=== PATIENT | female | born 1965 | race Caucasian/White ===

== ENCOUNTER → 2018-12-08 | Day surgery (SDC) | payer OTHER ==
[~2018-12-08] MED LIST: ACETAMINOPHEN 1000 MG/100 ML IV ONE; BUPIVACAINE HCL 0.5% INJ 30 ML VIAL INJ ONE; CEFAZOLIN SOD 1 GM/NS 50ML 50 ML IV ONE; DEXAMETHASONE SOD PHOS INJ 4 MG/ML VIAL ONE; EFFEXOR XR 3737.5 MG PO; FENTANYL CITRATE/PF 100MCG/2 ML INJ ONE; HYDROCODONE/APAP 5MG-325MG TAB ONE; KETOROLAC TROMETHAMINE 30 MG/ML VIAL ONE; LIDOCAINE HCL 2% LOCAL INJ 5 ML SDV VIAL INJ ONE; METOPROLOL TART50 MG PO; MIDAZOLAM HCL 2 MG/2 ML VIAL ONE; MULTIVITAMINS1 EAC7 PO; ONDANSETRON HCL INJ 2MG/ML 2ML 2 MG/ML VIAL ONE; PROPOFOL IV EMULSION 10 MG/ML 20 ML VIAL ONE; SEVOFLURANE INHAL SOLN 250 ML PEN BTL ONE
--- OUTSIDE RECORDS SUMMARY | 2018-12-08 05:09 | XMS REPORT | Encounter Summary ---
Author Organization Unknown Address [address] [place] [address] Phone [phone] Reason for Visit Medical Complaint Instructions 1. Urinary tract infectious disease urinalysis, dipstick urinary tract infection in women: care instructions phenazopyridine 200 mg tablet Macrobid 100 mg capsule culture, urine 2. Body mass index 25-29 - overweight body mass index: care instructions Discussion Note Pt is in no apparent acute distress; Verbalizes understanding of and agreement with all instructions with no questions at this time. Plan of Care Patient Instructions Take all medications as directed. Follow up with your PCP as needed. Seek additional medical care with new or worsening symptoms, or if symptoms do not resolve in 3-4 days. Thank you for allowing me to participate in your healthcare! Reminders Provider Appointments None recorded. Lab Urinalysis, Dipstick 12/02/2017 [facility] Culture, Urine 12/02/2017 [facility] Referral None recorded. Procedures None recorded. Surgeries None recorded. Imaging None recorded. Medications Name Start Date amlodipine 5 mg tablet TAKE 1 TABLET BY MOUTH TWICE A DAY ciprofloxacin 500 mg tablet TAKE 1 TABLET BY MOUTH TWICE A DAY enoxaparin 40 mg/0.4 mL subcutaneous syringe INJECT 1 SYRINGE SUB-Q DAILY fluconazole 150 mg tablet fluoxetine 20 mg capsule fluticasone 50 mcg/actuation nasal spray,suspension hydrochlorothiazide 25 mg tablet TAKE 1 TABLET BY MOUTH EVERY DAY hydrocodone 5 mg-acetaminophen 325 mg tablet Macrobid 100 mg capsule Take 1 capsule every 12 hours by oral route for 7 days. metoprolol succinate ER 50 mg tablet,extended release 24 hr TAKE 1 TABLET BY MOUTH TWICE A DAY montelukast 10 mg tablet TAKE 1 TABLET BY MOUTH AT BEDTIME mupirocin 2 % topical ointment APPLY TO AFFECTED AREA 4 TIMES A DAY NEEDED naproxen 500 mg tablet naproxen sodium 550 mg tablet TAKE 1 TABLET BY MOUTH EVERY 12 HOURS MAX OF 2 TABS IN 24 HOURS phenazopyridine 200 mg tablet Take 1 tablet 3 times a day by oral route as needed. prednisone 10 mg tablet TAKE 3 TABLETS BY MOUTH DAILY X3 DAYS, 2 TABLETS DAILY X3 DAYS, 1 TABLET DAILY X5 DAYS START 09/06/17 prochlorperazine maleate 10 mg tablet simvastatin 10 mg tablet sulfacetamide sodium (acne) 10 % lotion (suspension) APPLY TO FACE 1 TO 2 TIMES A DAY ROSACEA tramadol 50 mg tablet venlafaxine ER 37.5 mg capsule,extended release 24 hr TAKE 1 CAPSULE (37.5 MG) BY MOUTH AT BEDTIME. Medications Administered None recorded. Vitals Height Weight BMI Blood Pressure 5 ft 3 in 162 lbs 28.7 kg/m2 116/74 mm[Hg] Lab Results Date Name Specimen Result Interpretation Description Value Range Status Address Urinalysis, Dipstick Color : Yellow [facility]: [address] [place] [address] Clarity : Cloudy [facility]: [address] [place] [address] Leukocytes : Trace [facility]: [address] [place] [address] Nitrites : Negative [facility]: [address] [place] [address] Urobilinogen : Normal [facility]: [address] [place] [address] Protein : Negative [facility]: [address] [place] [address] Ph : 5.0 [facility]: [address] [place] [address] Blood : Moderate [facility]: [address] [place] [address] Specific [place] : 1.000 [facility]: [address] [place] [address] Ketones : Negative [facility]: [address] [place] [address] Bilirubin : Negative [facility]: [address] [place] [address] Glucose Negative [facility]: [address] [place] [address] Allergies Code Code System Name Reaction Severity Status Onset RxNorm Azithromycin Nausea Active Vomiting Active Problems Name Status Onset Date Source Urinary Tract Infectious Disease Active Encounter Procedures Date Name Performed by Hysterectomy Information not available Vaccine List None recorded. Social History Smoking Status Never Smoker Past Encounters 12/02/2017 Urinary Tract Infectious Disease; Body Mass Index 25-29 - Overweight WALESKA Cunningham-C: [address] [place] [address], Ph. History of Present Illness [id number] Reported By: Patient HPI: Location: urethra; flanks?. Quality: pain, burning. Severity: same. Onset/Timing: gradual. Context: no known exposure to STD, no prior history of STDs, sexually active. Associated Symptoms: no fever/chills, no flank pain, no jaundice, no blood in the urine, no vaginal discharge, no blisters on genitals, no rash on genitals, no muscle aches, no headache, pain during urination, urgency, hesitancy, urinary frequency, abdominal pain, feeling of incomplete emptying of bladder Review of Systems:ROS as noted in the HPI Review of Systems Basic Reported By: Patient Physical Exam Adult Basic, Adult Female Complete Reported By: Patient Constitutional: General Appearance: healthy-appearing, well-nourished, well-developed. Level of Distress: NAD. Ambulation: ambulating normally Psychiatric: Mental Status: active and alert. Orientation: to time, to place, to person Eyes: Lids and Conjunctivae: non-injected, no discharge, no pallor. Pupils: PERRLA. Corneas: grossly intact. EOM: EOMI. Lens: clear. Sclerae: non-icteric Mgp-Ytmt-Hnmfu-Throat: Ears: no lesions on external ear, no outer ear tenderness, EACs clear, TMs clear. Hearing: no hearing loss. Nose: no lesions on external nose, nares patent, no septal deviation, nasal passages clear, no sinus tenderness, no nasal discharge. Lips, Teeth, and Gums: no mouth or lip ulcers. Oropharynx: moist mucous membranes, no erythema, no exudates, tonsils not enlarged Neck: Neck: supple, trachea midline, no masses, FROM. Lymph Nodes: no cervical LAD, no supraclavicular LAD, no inguinal LAD. Thyroid: no enlargement, non- tender, no nodules Lungs: Respiratory effort: no dyspnea. Auscultation: breath sounds normal Cardiovascular: Heart Auscultation: RRR, no murmurs Neurologic: Gait and Station: normal gait, normal station Skin: Inspection and palpation: no rash, no lesions Abdomen: Bowel Sounds: normal. Inspection and Palpation: soft, non-distended, no tenderness, no guarding, no rebound tenderness, no masses, no CVA tenderness. Liver: non-tender, no hepatomegaly. Spleen: non-tender, no splenomegaly. Hernia: none palpable
--- OUTSIDE RECORDS SUMMARY | 2018-12-08 05:09 | XMS REPORT | Encounter Summary ---
Author Organization Unknown Address [address] [place] [address] Phone [phone] Reason for Visit Medical Complaint Instructions 1. Dysuria painful urination (dysuria): care instructions sulfamethoxazole 800 mg-trimethoprim 160 mg tablet urinalysis, dipstick culture, urine phenazopyridine 200 mg tablet 2. Elevated blood pressure elevated blood pressure: care instructions dash diet: care instructions blood pressure monitoring education 3. Body mass index 25-29 - overweight learning about healthy weight Discussion Note: None recorded. Plan of Care Patient Instructions A urinary tract infection, or UTI, is a general term for an infection anywhere between the kidneys and the urethra (where urine comes out). Most UTIs are bladder infections. They often cause pain or burning when you urinate. UTIs are caused by bacteria and can be cured with antibiotics. Be sure to complete your treatment so that the infection goes away. How can you care for yourself at home? Take your antibiotics as directed. Do not stop taking them just because you feel better. You need to take the full course of antibiotics. Drink extra water and other fluids for the next day or two. This may help wash out the bacteria that are causing the infection. (If you have kidney, heart, or liver disease and have to limit fluids, talk with your doctor before you increase your fluid intake.) Avoid drinks that are carbonated or have caffeine. They can irritate the bladder. Urinate often. Try to empty your bladder each time. To relieve pain, take a hot bath or lay a heating pad set on low over your lower belly or genital area. Never go to sleep with a heating pad in place. To prevent UTIs Drink plenty of water each day. This helps you urinate often, which clears bacteria from your system. (If you have kidney, heart, or liver disease and have to limit fluids, talk with your doctor before you increase your fluid intake.) Urinate when you need to. Urinate right after you have sex. Change sanitary pads often. Avoid douches, bubble baths, feminine hygiene sprays, and other feminine hygiene products that have deodorants. After going to the bathroom, wipe from front to back. When should you call for help? Call your doctor now or seek immediate medical care if: Symptoms such as fever, chills, nausea, or vomiting get worse or appear for the first time. You have new pain in your back just below your rib cage. This is called flank pain. There is new blood or pus in your urine. You have any problems with your antibiotic medicine. Watch closely for changes in your health, and be sure to contact your doctor if: You are not getting better after taking an antibiotic for 2 days. Your symptoms go away but then come back. Reminders Provider Appointments None recorded. Lab Urinalysis, Dipstick 07/05/2018 [facility] Culture, Urine 07/05/2018 [facility] Referral None recorded. Procedures None recorded. Surgeries None recorded. Imaging None recorded. Medications Name Start Date amoxicillin 875 mg-potassium clavulanate 125 mg tablet TAKE 1 TABLET BY MOUTH EVERY 12 HOURS WITH MEALS FOR 10 DAYS benzonatate 100 mg capsule TAKE 2 CAPSULE(S) 3 TIMES A DAY BY ORAL ROUTE DIRECTED FOR 10 DAYS. metoprolol succinate ER 50 mg tablet,extended release 24 hr TAKE 1 TABLET BY MOUTH TWICE A DAY montelukast 10 mg tablet TAKE 1 TABLET BY MOUTH AT BEDTIME phenazopyridine 200 mg tablet Take 1 tablet 3 times a day by oral route as needed. sulfamethoxazole 800 mg-trimethoprim 160 mg tablet Take 1 tablet every 12 hours by oral route as directed for 5 days. venlafaxine ER 37.5 mg capsule,extended release 24 hr TAKE 1 CAPSULE (37.5 MG) BY MOUTH AT BEDTIME. Medications Administered None recorded. Vitals Height Weight BMI Blood Pressure 5 ft 3 in 162 lbs 28.7 kg/m2 137/87 mm[Hg] Lab Results Date Name Specimen Result Interpretation Description Value Range Status Address Urinalysis, Dipstick Color : Yellow [facility]: [address] [place] [address] Clarity : Clear [facility]: [address] [place] [address] Leukocytes : Trace [facility]: [address] [place] [address] Nitrites : Negative [facility]: [address] [place] [address] Urobilinogen : Normal [facility]: [address] [place] [address] Protein : Trace [facility]: [address] [facility] Ph : 5.0 [facility]: [address] [facility] Blood : Non-hemolized Trace [facility]: [address] [facility] Specific [place] : 1.010 [facility]: [address] [facility] Ketones : Trace [facility]: [address] [facility] Bilirubin : Negative [facility]: [address] [facility] Glucose Negative [facility]: [address] [facility] Allergies Code Code System Name Reaction Severity Status Onset RxNorm Azithromycin Nausea Active Vomiting Active Problems Name Status Onset Date Source 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 History of Present Illness [id number] Reported By: Patient HPI: Quality: pain, pressure, burning. Severity: mild. Duration: constant. Context: not sexually active, no known exposure to STD, no prior history of STDs. Associated Symptoms: no fever/chills, no flank pain, no jaundice, no blood in the urine, no pain during urination, no vaginal discharge, no urgency, no blisters on genitals, no rash on genitals, no muscle aches, no headache, burning sensation during urination, urinary frequency, abdominal pain, feeling of incomplete emptying of bladder Review of Systems:ROS as noted in the HPI Review of Systems Basic Reported By: Patient Physical Exam Adult Basic, Adult Female Complete Reported By: Patient Constitutional: General Appearance: healthy-appearing, well-nourished, well-developed, overweight. Level of Distress: NAD. Ambulation: ambulating normally Psychiatric: Mental Status: active and alert. Orientation: to time, to place, to person Lungs: Respiratory effort: no dyspnea, no tachypnea, no use of accessory muscles, no intercostal retractions. Auscultation: breath sounds normal Cardiovascular: Heart Auscultation: RRR, no murmurs
--- OUTSIDE RECORDS SUMMARY | 2018-12-08 05:09 | XMS REPORT | Encounter Summary ---
Author Organization Unknown Address [address] [place] [address] Phone [phone] Reason for Visit Medical Complaint Instructions 1. [...] Urinalysis, Dipstick Color : Yellow [facility]: [address] [place] [address] Clarity : Clear [facility]: [address] [place] [address] Leukocytes : Trace [facility]: [address] [place] [address] Nitrites : Negative [facility]: [address] [place] [address] Urobilinogen : Normal [facility]: [address] [place] [address] Protein : Trace [facility]: [address] [facility] Ph : 5.0 [facility]: [address] [facility] Blood : Non-hemolized Trace [facility]: [address] [facility] Specific [place] : 1.010 [facility]: [address] [facility] Ketones : Trace [facility]: [address] [facility] Bilirubin : Negative [facility]: [address] [facility] Glucose Negative [facility]: [address] [facility] Allergies Code Code System Name Reaction Severity Status Onset RxNorm Azithromycin Nausea Active Vomiting Active Problems Name Status Onset Date Source 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 History of Present Illness [id number] Reported By: Patient HPI: Quality: pain, pressure, [...]
--- OUTSIDE RECORDS SUMMARY | 2018-12-08 05:09 | XMS REPORT | Encounter Summary ---
Author Organization Unknown Address [address] [place] [address] Phone [phone] Reason for Visit Medical Complaint Instructions 1. Urinary tract infectious disease urinalysis, dipstick Macrobid 100 mg capsule culture, urine urinary tract infection in women: care instructions 2. Essential hypertension acute high blood pressure: care instructions dash diet: care instructions Discussion Note: None recorded. Plan of Care Patient Instructions Please drink plenty of water and cranberry juice, complete antibiotic course even after symptoms resolve. Please go to ER/UC/PCP if symptoms get worse or doesn't get better in 2 to 3 days. Please follow up with oncologist RANDOLPH. Please read all the side effects of the medications, if you develop any side effects immediately stop the medication and please contact your PCP/UC/ER or [facility] or call 911. Patient verbalizes understanding and agrees to plan. Please follow up with PCP for further follow up and evaluation of high blood pressure. Please monitor BP regularly, keep BP log and take it when you go to PCP, seek medical advice if any dizziness, chest pain,shortness of breath, head ache, weakness or numbness. Patient verbalizes understanding and agrees to plan. Reminders Provider Appointments None recorded. Lab Urinalysis, Dipstick 05/22/2016 [facility] Culture, Urine 05/22/2016 [facility] Referral None recorded. Procedures None recorded. Surgeries None recorded. Imaging None recorded. Medications Name Start Date amlodipine 5 mg tablet amoxicillin 875 mg-potassium clavulanate 125 mg tablet ciprofloxacin 500 mg tablet Depo-Medrol 80 mg/mL suspension for injection enoxaparin 40 mg/0.4 mL subcutaneous syringe INJECT 1 SYRINGE SUB-Q DAILY fluconazole 150 mg tablet fluoxetine 20 mg capsule fluticasone 50 mcg/actuation nasal spray,suspension hydrocodone 5 mg-acetaminophen 325 mg tablet Macrobid 100 mg capsule Take 1 capsule every 12 hours by oral route with meals for 7 days. metoprolol succinate ER 50 mg tablet,extended release 24 hr naproxen 500 mg tablet naproxen sodium 550 mg tablet ondansetron HCl 8 mg tablet [place] 1.2 % (1 % base)-3.75 % topical gel with pump APPLY TO PIMPLES DAILY, Pramosone E 2.5 %-1 % topical cream prochlorperazine maleate 10 mg tablet simvastatin 10 mg tablet tramadol 50 mg tablet Medications Administered None recorded. Vitals Height Weight BMI Blood Pressure 5 ft 3 in 166 lbs 29.4 (1) 148/80 (2) 145/84 Lab Results Date Name Result Description Value Range Status Urinalysis, Dipstick Color : Yellow Clarity : Clear Leukocytes : Large Nitrites : Negative Urobilinogen : Normal Protein : Trace Ph : 5.5 Blood : Hemolyzed Trace Specific [place] : 1.015 Ketones : Negative Bilirubin : Negative Glucose Negative Allergies Name Reaction Severity Onset Azithromycin Nausea Vomiting Problems Name Status Onset Date Source Acute Suppurative Otitis Media without Spontaneous Rupture of Ear Drum Active Encounter Essential Hypertension Active Encounter Acute Maxillary Sinusitis Active Encounter Allergic Rhinitis Active Encounter Urinary Tract Infectious Disease Active Encounter Procedures Date Name Performed by Hysterectomy Information not available Vaccine List None recorded. 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 History of Present Illness [id number] Reported By: Patient HPI: Location: abdomen, urethra. Quality: pressure, burning. Severity: worsening. Duration: intermittent. Onset/Timing: worse. Context: not sexually active, no known exposure to STD, no prior history of STDs. Associated Symptoms: no fever/chills, no flank pain, no jaundice, no blood in the urine, no pain during urination, no vaginal discharge, no blisters on genitals, no rash on genitals, burning sensation during urination, urgency, urinary frequency, abdominal pain Notes: Pt denies fevr, abdominal pain or back pain. Review of Systems Basic Reported By: Patient Constitutional: Constitutional: no fever Eyes: Eyes: no eye complaints Fwhi-Bkyw-Wgdsf-Throat: Ears: no ear complaints. Nose: no nose/sinus problems. Mouth/Throat: no sore throat, no bleeding gums, no mouth complaints, no teeth problems Cardiovascular: Cardiovascular: no chest pain, no shortness of breath, no known heart murmur Respiratory: Respiratory: no cough, no wheezing, no shortness of breath Gastrointestinal: Gastrointestinal: no abdominal pain, no vomiting / diarrhea Genitourinary: Genitourinary: no discharge, dysuria, urinary urgency Musculoskeletal: Musculoskeletal: no muscle aches, no muscle weakness, no arthralgias/joint pain, no back pain Skin: Skin: no abnormal / changing mole, no jaundice, no rashes Neurologic: Neurologic: no loss of consciousness, no weakness, no numbness, no seizures, no dizziness, no headaches Physical Exam Adult Basic, Adult Female Complete Reported By: Patient Constitutional: General Appearance: healthy-appearing, well-nourished, well-developed. Level of Distress: NAD. Ambulation: ambulating normally Psychiatric: Mental Status: active and alert. Orientation: to time, to place, to person Lungs: Respiratory effort: no dyspnea, no tachypnea. Auscultation: breath sounds normal Cardiovascular: Heart Auscultation: RRR, no murmurs Neurologic: Gait and Station: normal gait Skin: Inspection and palpation: no rash Abdomen: Bowel Sounds: normal. Inspection and Palpation: soft, non-distended, no guarding, no rebound tenderness, no masses, no CVA tenderness, suprapubic tenderness
--- OUTSIDE RECORDS SUMMARY | 2018-12-08 05:09 | XMS REPORT | Encounter Summary ---
Author Organization Unknown Address [address] [place] [address] Phone [phone] Reason for Visit Medical Complaint Instructions 1. Urinary tract infectious disease urinalysis, dipstick Macrobid 100 mg capsule culture, urine urinary tract infection in women: care instructions Discussion Note: None recorded. Plan [...] medication and please [facility] or call 911. Patient verbalizes understanding and agrees to plan. Reminders Provider Appointments None recorded. Lab Urinalysis, Dipstick 05/22/2016 [facility] Culture, Urine 05/22/2016 [facility] Referral None [...] : 5.5 Blood : Hemolyzed Trace Specific [place] : 1.015 Ketones : Negative Bilirubin : Negative Glucose Negative Allergies Name Reaction Severity Onset Azithromycin Nausea Vomiting Problems Name Status Onset Date Source Acute Suppurative Otitis Media without Spontaneous Rupture of Ear Drum Active Encounter Acute Maxillary Sinusitis Active Encounter Allergic Rhinitis Active Encounter Urinary Tract Infectious Disease Active Encounter Procedures Date Name Performed by Hysterectomy Information not available Vaccine List None recorded. 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 History of Present Illness [id number] Reported By: Patient HPI: Location: abdomen, urethra. [...] no fever Eyes: Eyes: no eye complaints Pnto-Vnfh-Zgfmr-Throat: Ears: no ear complaints. Nose: no nose/sinus [...]
--- OUTSIDE RECORDS SUMMARY | 2018-12-08 05:09 | XMS REPORT | Encounter Summary ---
Author Organization Unknown Address [address] [place] [address] Phone [phone] Reason for Visit Medical Complaint Instructions 1. Allergic rhinitis allergies: care instructions Xyzal 5 mg tablet fluticasone propionate 50 mcg/actuation nasal spray,suspension rapid strep group A, throat Discussion Note Pt in NAD, understands all information provided Plan of Care Patient Instructions Pt will take meds as prescribed with 8oz glass of water. Please seek care (PCP, Urgent Care, ER) or return to [facility] if symptoms get worse or do not resolve in 1 week. Reminders Provider Appointments None recorded. Lab Rapid Strep Group a, Throat 10/27/2018 [facility] Referral None recorded. Procedures None recorded. Surgeries None recorded. Imaging None recorded. Medications Name Start Date doxycycline hyclate 20 mg tablet fluticasone propionate 50 mcg/actuation nasal spray,suspension [place] 1 spray twice a day by intranasal route for 14 days. metoprolol succinate ER 50 mg tablet,extended release 24 hr TAKE 1 TABLET BY MOUTH TWICE A DAY venlafaxine ER 37.5 mg capsule,extended release 24 hr TAKE 1 CAPSULE (37.5 MG) BY MOUTH AT BEDTIME. Xyzal 5 mg tablet Take 1 tablet every day by oral route for 14 days. Medications Administered None recorded. Vitals Height Weight BMI Blood Pressure 5 ft 3 in 162 lbs 28.7 kg/m2 120/90 mm[Hg] Lab Results Date Name Specimen Result Interpretation Description Value Range Status Address 10/10/2018 Culture, Urine URINE ABNORMAL Urine Culture, Routine final report Final [facility]: [id number] URINE ABNORMAL Result 1 escherichia coli Final [facility]: [id number], [place] URINE Antimicrobial Susceptibility mihead Final [facility]: [address], [place] Rapid Strep Group a, Throat Result negative [facility]: [address] [place] [address] Swab Location Left and Right tonsillar pillars [facility]: [address] [place] [address] Urinalysis, Dipstick Color : Yellow [facility]: [address] [facility] Clarity : Cloudy [facility]: [address] [facility] Leukocytes : Moderate [facility]: [address] [place] [address] Nitrites : Positive [facility]: [address] [place] [address] Urobilinogen : Normal [facility]: [address] [place] [address] Protein : Trace [facility]: [address] [place] [address] Ph : 6.0 [facility]: [address] [place] [address] Blood : Large [facility]: [address] [place] [address] Specific [place] : 1.010 [facility]: 9 [facility] Ketones : Negative [facility]: [facility] Bilirubin : Negative [facility]: [address] [place] [address] Glucose Negative [facility]: [address] [place] [address] Allergies Code Code System Name Reaction Severity Status Onset RxNorm Azithromycin Nausea Active Vomiting Active Problems Name Status Onset Date Source 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 10/10/2018 Dysuria; Elevated Blood Pressure; Body Mass Index 25-29 - Overweight Rachelluisjenn NAJMA ContrerasP-C: [address] [place] [address], Ph. History of Present Illness Throat-Oral Complaint Reported By: Patient HPI: Location: throat. Duration: 2 days. Context: no sick contacts, no foreign travel, non-smoker. Associated Symptoms: no fever, no headache, no body aches, no sputum production, no shortness of breath, no wheezing, no change in number of pillows needed to sleep at night, no sweats, no significant weight gain, no significant weight loss, no morning cough, no vomiting, no diarrhea, no rash, no nausea, sore throat Review of Systems:ROS as noted in the HPI Review of Systems Basic Reported By: Patient Physical Exam Adult Basic, Adult Female Complete Reported By: Patient Constitutional: General Appearance: healthy-appearing, well-nourished, well-developed. Level of Distress: NAD. Ambulation: ambulating normally Psychiatric: Mental Status: active and alert. Orientation: to time, to place, to person Val-Xngb-Akryw-Throat: Ears: no lesions on external ear, no outer ear tenderness, EACs clear, TMs clear. Hearing: no hearing loss. Nose: no lesions on external nose, nares patent, no septal deviation, nasal passages clear, sinus tenderness, post nasal drip. Lips, Teeth, and Gums: no mouth or lip ulcers, no bleeding gums, normal dentition. Oropharynx: erythema Lungs: Respiratory effort: no dyspnea, no tachypnea, no use of accessory muscles, no intercostal retractions. Auscultation: breath sounds normal Cardiovascular: Heart Auscultation: RRR, no murmurs Neurologic: Gait and Station: normal gait, normal station
--- OUTSIDE RECORDS SUMMARY | 2018-12-08 05:09 | XMS REPORT | Encounter Summary ---
Author Organization Unknown Address [address] [place] [address] Phone [phone] Reason for Visit Medical Complaint Instructions 1. Dysuria painful urination (dysuria): care instructions sulfamethoxazole 800 mg-trimethoprim 160 mg tablet urinalysis, dipstick culture, urine 2. Elevated blood pressure elevated blood pressure: [...] TAKE 1 TABLET BY MOUTH AT BEDTIME sulfamethoxazole 800 mg-trimethoprim 160 mg tablet Take [...] Urinalysis, Dipstick Color : Yellow [facility]: [address] [place] [address] Clarity : Clear [facility]: [address] [place] [address] Leukocytes : Trace [facility]: [address] [place] [address] Nitrites : Negative [facility]: [address] [place] [address] Urobilinogen : Normal [facility]: [address] [place] [address] Protein : Trace [facility]: [address] [place] [address] Ph : 5.0 [facility]: [address] [place] [address] Blood : Non-hemolized Trace [facility]: 9 [facility] Specific [place] : 1.010 [facility]: 9 [facility] Ketones : Trace [facility]: 9 [facility] Bilirubin : Negative [facility]: 9 [facility] Glucose Negative [facility]: 9 [facility] Allergies Code Code System Name Reaction Severity Status Onset RxNorm Azithromycin Nausea Active Vomiting Active Problems Name Status Onset Date Source 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 Social History Smoking Status Never Smoker Past Encounters 07/05/2018 Dysuria; Elevated Blood Pressure; Body Mass Index 25-29 - Overweight WALESKA Browne-C: [address] [place] [address], Ph. History of Present Illness Egakxx-VXZ-Cekveau Reported By: Patient HPI: Quality: pain, pressure, [...]
--- OUTSIDE RECORDS SUMMARY | 2018-12-08 05:09 | XMS REPORT | Encounter Summary ---
Author Organization Unknown Address [address] [place] [address] Phone [phone] Reason for Visit Medical Complaint Instructions 1. Acute upper respiratory infection upper respiratory infection (cold): care instructions rapid flu (A+B) 2. Serous otitis media of right ear Augmentin 875 mg-125 mg tablet 3. Sore throat symptom rapid strep group A, throat 4. Cough Tessalon Perles 100 mg capsule Discussion Note Discussed with parent to take OTC ibuprofen per label directions for ear pain. If fever, increase in pain and symptoms, go to urgent care/emergency room. Increase fluid intake. Patient verbalized understanding. follow up with PCP in 2 weeks for recheck Plan of Care Reminders Provider Appointments None recorded. Lab Rapid Strep Group a, Throat 06/04/2018 [facility] Rapid Flu (A+B) 06/04/2018 [facility] Referral None recorded. Procedures None recorded. Surgeries None recorded. Imaging None recorded. Medications Name Start Date Augmentin 875 mg-125 mg tablet Take 1 tablet every 12 hours by oral route with meals for 10 days. metoprolol succinate ER 50 mg tablet,extended release 24 hr TAKE 1 TABLET BY MOUTH TWICE A DAY montelukast 10 mg tablet TAKE 1 TABLET BY MOUTH AT BEDTIME Tessalon Perles 100 mg capsule Take 2 capsules 3 times a day by oral route as directed for 10 days. venlafaxine ER 37.5 mg capsule,extended release 24 hr TAKE 1 CAPSULE (37.5 MG) BY MOUTH AT BEDTIME. Medications Administered None recorded. Vitals Height Weight BMI Blood Pressure 5 ft 3 in 166 lbs 29.4 kg/m2 110/80 mm[Hg] Lab Results Date Name Specimen Result Interpretation Description Value Range Status Address Rapid Flu (A+B) Influenza a negative [facility]: [address] [place] [address] Influenza B negative [facility]: [address] [place] [address] Rapid Strep Group a, Throat Result negative [facility]: [address] [place] [address] Swab Location Left and Right tonsillar pillars [facility]: [address] [place] [address] Allergies Code Code System Name Reaction Severity Status Onset RxNorm Azithromycin Nausea Active Vomiting Active Problems Name Status Onset Date Source 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 Social History Smoking Status Never Smoker Past Encounters 06/04/2018 Acute Upper Respiratory Infection; Serous Otitis Media of Right Ear; Sore Throat Symptom; Cough Yelitza Costa PA-C: [address] [place] [address], Ph. History of Present Illness Cough Reported By: Patient HPI: Location: chest. Quality: productive cough, sore throat, congested. Duration: 14 days. Severity: mild. Onset/Timing: gradual. Context: no foreign travel, non-smoker, sick contact. Modifying factors: OTC medication. Associated Symptoms: no shortness of breath, no wheezing, no sweats, no significant weight gain, no significant weight loss, no morning cough, no vomiting, no diarrhea, no rash, no nausea, no fever/chills, green sputum, sore throat, muscle aches, headache Review of Systems Basic Reported By: Patient Constitutional: Constitutional: no fever Eyes: Eyes: no eye complaints Hzgy-Eaql-Gpyix-Throat: Ears: ear pain. Nose: nose/sinus problems. Mouth/Throat: no bleeding gums, no mouth complaints, no teeth problems, sore throat Cardiovascular: Cardiovascular: no chest pain, no shortness of breath, no known heart murmur Respiratory: Respiratory: no wheezing, no shortness of breath, cough Gastrointestinal: Gastrointestinal: no abdominal pain, no vomiting / diarrhea Genitourinary: Genitourinary: no urinary complaints, no discharge Musculoskeletal: Musculoskeletal: no arthralgias/joint pain, no back pain, muscle aches, muscle weakness Skin: Skin: no abnormal / changing mole, no jaundice, no rashes Neurologic: Neurologic: no loss of consciousness, no weakness, no numbness, no seizures, no dizziness, no headaches, headache Physical Exam Adult Basic, Adult Female Complete Reported By: Patient Constitutional: General Appearance: healthy-appearing, well-nourished, well-developed. Level of Distress: NAD. Ambulation: ambulating normally Psychiatric: Mental Status: active and alert. Orientation: to time, to place, to person Eyes: Lids and Conjunctivae: non-injected, no discharge, no pallor. Pupils: PERRLA. EOM: EOMI. Sclerae: non-icteric. Vision: acuity grossly intact Gmy-Fyla-Hcgyq-Throat: Ears: no lesions on external ear, no outer ear tenderness, EACs clear, TM erythematous, middle ear fluid. Hearing: no hearing loss. Nose: no lesions on external nose, nares patent, no septal deviation, nasal passages clear, no sinus tenderness, nasal discharge, nasal discharge--purulent, nasal discharge--rhinorrhea, post nasal drip. Lips, Teeth, and Gums: no mouth or lip ulcers, no bleeding gums, normal dentition. Oropharynx: moist mucous membranes, no erythema, no exudates, tonsils not enlarged; cobblestoning Neck: Neck: supple, trachea midline, no masses, FROM. Lymph Nodes: no cervical LAD, no supraclavicular LAD Lungs: Respiratory effort: no dyspnea, no tachypnea, no use of accessory muscles, no intercostal retractions. Auscultation: breath sounds normal Cardiovascular: Heart Auscultation: RRR, no murmurs
--- OUTSIDE RECORDS SUMMARY | 2018-12-08 05:09 | XMS REPORT | Encounter Summary ---
Author Organization Unknown Address [address] [place] [address] Phone [phone] Reason for Visit Medical Complaint Instructions 1. Dysuria urinalysis, dipstick painful urination (dysuria): care instructions Macrobid 100 mg capsule culture, urine 2. Elevated blood pressure elevated [...] Provider Appointments None recorded. Lab Urinalysis, Dipstick 10/10/2018 [facility] Culture, Urine 10/10/2018 [facility] Referral None recorded. Procedures None recorded. Surgeries None recorded. Imaging None recorded. Medications Name Start Date Macrobid 100 mg capsule Take 1 capsule [...] ft 3 in 162 lbs 28.7 kg/m2 124/80 mm[Hg] Lab Results Date Name Specimen Result Interpretation Description Value Range Status Address Urinalysis, Dipstick Color : Yellow [facility]: [address] [place] [address] Clarity : Cloudy [facility]: [address] [place] [address] Leukocytes : Moderate [facility]: [address] [place] [address] Nitrites : Positive [facility]: [address] [place] [address] Urobilinogen : Normal [facility]: [address] [place] [address] Protein : Trace [facility]: [address] [place] [address] Ph : 6.0 [facility]: [address] [place] [address] Blood : Large [facility]: [address] [place] [address] Specific [place] : 1.010 [facility]: [address] [place] [address] Ketones : Negative [facility]: [address] [place] [address] Bilirubin : Negative [facility]: [address] [place] [address] Glucose Negative [facility]: [address] [place] [address] Allergies Code Code System Name Reaction Severity Status Onset 83456 RxNorm Azithromycin Nausea Active Vomiting Active Problems Name Status Onset Date Source 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 Social History Smoking Status Never Smoker Past Encounters 10/10/2018 Dysuria; Elevated Blood Pressure; Body Mass Index 25-29 - Overweight Calixto Contreras [facility]-C: [address] [place] [address], Ph. History of Present Illness Wpkjfi-JIT-Zczqyvr Reported By: Patient HPI: Location: abdomen, urethra. Quality: pain, pressure, burning. Context: not sexually active, no known exposure to STD, no prior history of STDs. Associated Symptoms: no fever/chills, no jaundice, no blood in the urine, no pain during urination, no vaginal discharge, no urgency, no blisters on genitals, no rash on genitals, no muscle aches, no headache, flank pain, burning sensation during urination, urinary frequency, abdominal pain Review of Systems:ROS as noted in the [...] normal Cardiovascular: Heart Auscultation: RRR, no murmurs Abdomen: Inspection and Palpation: soft, non-distended, no tenderness, no guarding, no rebound tenderness, no masses, no CVA tenderness
--- OUTSIDE RECORDS SUMMARY | 2018-12-08 05:09 | XMS REPORT | Encounter Summary ---
Author Organization Unknown Address [address] [place] [address] Phone [phone] Reason for Visit Medical Complaint Instructions 1. Allergic rhinitis allergies: care instructions Xyzal 5 mg tablet fluticasone propionate 50 mcg/actuation nasal spray,suspension Discussion Note Pt in NAD, understands all information provided Plan of Care Patient Instructions Pt will take meds as prescribed with 8oz glass of water. Please seek care (PCP, Urgent Care, ER) [facility] if symptoms get worse or do not resolve in 1 week. Reminders Provider Appointments None recorded. Lab None recorded. Referral None recorded. Procedures None recorded. Surgeries None recorded. Imaging None recorded. Medications Name Start Date doxycycline hyclate 20 mg tablet fluticasone propionate 50 mcg/actuation nasal spray,suspension [place] 1 spray twice a day by intranasal [...] Routine final report Final [facility]: [address] URINE ABNORMAL Result 1 escherichia coli Final [facility]: [address] URINE Antimicrobial Susceptibility mihead Final [facility]: [address] Urinalysis, Dipstick Color : Yellow [facility]: [address] [place] [address] Clarity : Cloudy [facility]: [address] [place] [address] Leukocytes : Moderate [facility]: [address] [place] [address] Nitrites : Positive [facility]: [address] [place] [address] Urobilinogen : Normal [facility]: [facility] Protein : Trace [facility]: 9 [facility] Ph : 6.0 [facility]: 9 [facility] Blood : Large [facility]: 9 [facility] Specific [place] : 1.010 [facility]: 9 [facility] Ketones : Negative [facility]: 9 [facility] Bilirubin : Negative [facility]: [address] [place] [address] Glucose Negative [facility]: 9 [facility] Allergies Code Code System Name Reaction Severity Status Onset RxNorm Azithromycin Nausea Active Vomiting Active Problems Name Status Onset Date Source 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 10/10/2018 Dysuria; Elevated Blood Pressure; Body Mass Index 25-29 - Overweight WALESKA Browne-C: [address] [place] [address], Ph. History of Present Illness Throat-Oral Complaint [...] Orientation: to time, to place, to person Ffe-Hlyn-Nrysd-Throat: Ears: no lesions on external ear, no [...]
--- OUTSIDE RECORDS SUMMARY | 2018-12-08 05:09 | XMS REPORT | Continuity of Care Document ---
Author Author [facility] Interface Address Unknown Phone Unavailable Problems Problem Status Onset Date Classification Date Reported Comments Source Allergic rhinitis 10/23/2018 Diagnosis 10/27/2018 [facility] Body mass index 25-29 - overweight 10/10/2018 Diagnosis 10/27/2018 [facility] Dysuria 10/10/2018 Diagnosis 10/27/2018 [facility] Elevated blood pressure 10/10/2018 Diagnosis 10/27/2018 [facility] Cough 06/04/2018 Diagnosis 06/04/2018 [facility] Sore throat symptom 06/04/2018 Diagnosis 06/04/2018 [facility] Serous otitis media of right ear 06/04/2018 Diagnosis 06/04/2018 [facility] Acute upper respiratory infection 06/04/2018 Diagnosis 06/04/2018 [facility] Malignant Tumor of Ovary 06/04/2018 Problem 10/27/2018 [facility] Urinary tract infectious disease 12/02/2017 Diagnosis 12/02/2017 [facility] Essential hypertension 05/22/2016 Diagnosis 05/22/2016 [facility] Acute Suppurative Otitis Media without Spontaneous Rupture of Ear Drum Problem 05/22/2016 [facility] Essential Hypertension Problem 05/22/2016 [facility] Acute Maxillary Sinusitis Problem 05/22/2016 [facility] Allergic Rhinitis Problem 05/22/2016 [facility] Urinary Tract Infectious Disease Problem 12/02/2017 [facility] Medications Medication Details Route Status Patient Instructions Ordering Provider Order Date Source Amoxicillin 875 MG / Clavulanate 125 MG Oral Tablet amoxicillin 875 mg-potassium clavulanate 125 mg tablet TAKE 1 TABLET BY MOUTH EVERY 12 HOURS WITH MEALS FOR 10 DAYS Active [facility] benzonatate 100 MG Oral Capsule benzonatate 100 mg capsule TAKE 2 CAPSULE(S) 3 TIMES A DAY BY ORAL ROUTE DIRECTED FOR 10 DAYS. Active [facility] 24 HR metoprolol succinate 50 MG Extended Release Oral Tablet metoprolol succinate ER 50 mg tablet,extended release 24 hr TAKE 1 TABLET BY MOUTH TWICE A DAY Active [facility] montelukast 10 MG Oral Tablet montelukast 10 mg tablet TAKE 1 TABLET BY MOUTH AT BEDTIME Active [facility] Phenazopyridine hydrochloride 200 MG Oral Tablet phenazopyridine 200 mg tablet Take 1 tablet 3 times a day by oral route as needed. Active [facility] Sulfamethoxazole 800 MG / Trimethoprim 160 MG Oral Tablet sulfamethoxazole 800 mg-trimethoprim 160 mg tablet Take 1 tablet every 12 hours by oral route as directed for 5 days. Active [facility] 24 HR venlafaxine 37.5 MG Extended Release Oral Capsule venlafaxine ER 37.5 mg capsule,extended release 24 hr TAKE 1 CAPSULE (37.5 MG) BY MOUTH AT BEDTIME. Active [facility] Amlodipine 5 MG Oral Tablet amlodipine 5 mg tablet TAKE 1 TABLET BY MOUTH TWICE A DAY Active [facility] Ciprofloxacin 500 MG Oral Tablet ciprofloxacin 500 mg tablet TAKE 1 TABLET BY MOUTH TWICE A DAY Active [facility] 1 ML methylprednisolone acetate 80 MG/ML Injection [Depo-Medrol] Depo-Medrol 80 mg/mL suspension for injection Active [facility] 0.4 ML Enoxaparin sodium 100 MG/ML Prefilled Syringe enoxaparin 40 mg/0.4 mL subcutaneous syringe INJECT 1 SYRINGE SUB-Q DAILY Active [facility] Fluconazole 150 MG Oral Tablet fluconazole 150 mg tablet Active [facility] Fluoxetine 20 MG Oral Capsule fluoxetine 20 mg capsule Active [facility] Fluticasone propionate 0.05 MG/ACTUAT Metered Dose Nasal Brule fluticasone propionate 50 mcg/actuation nasal spray,suspension Brule 1 spray twice a day by intranasal route for 14 days. Active [facility] Acetaminophen 325 MG / Hydrocodone Bitartrate 5 MG Oral Tablet hydrocodone 5 mg-acetaminophen 325 mg tablet Active [facility] NITROFURANTOIN, MACROCRYSTALS 25 MG / Nitrofurantoin, Monohydrate 75 MG Oral Capsule [Macrobid] Macrobid 100 mg capsule Take 1 capsule every 12 hours by oral route for 7 days. Active [facility] Naproxen 500 MG Oral Tablet naproxen 500 mg tablet Active [facility] Naproxen sodium 550 MG Oral Tablet naproxen sodium 550 mg tablet TAKE 1 TABLET BY MOUTH EVERY 12 HOURS MAX OF 2 TABS IN 24 HOURS Active [facility] Ondansetron 8 MG Oral Tablet ondansetron HCl 8 mg tablet Active [facility] Benzoyl Peroxide 0.0375 MG/MG / clindamycin phosphate 0.012 MG/MG Topical Gel [Onexton] Onexton 1.2 % (1 % base)-3.75 % topical gel with pump APPLY TO PIMPLES DAILY, Active [facility] Emollient hydrocortisone acetate 25 MG/ML / Pramoxine hydrochloride 10 MG/ML Topical Cream [Pramosone] Pramosone E 2.5 %-1 % topical cream Active [facility] Prochlorperazine 10 MG Oral Tablet prochlorperazine maleate 10 mg tablet Active [facility] Simvastatin 10 MG Oral Tablet simvastatin 10 mg tablet Active [facility] tramadol hydrochloride 50 MG Oral Tablet tramadol 50 mg tablet Active [facility] Hydrochlorothiazide 25 MG Oral Tablet hydrochlorothiazide 25 mg tablet TAKE 1 TABLET BY MOUTH EVERY DAY Active [facility] Mupirocin 0.02 MG/MG Topical Ointment mupirocin 2 % topical ointment APPLY TO AFFECTED AREA 4 TIMES A DAY NEEDED Active [facility] Prednisone 10 MG Oral Tablet prednisone 10 mg tablet TAKE 3 TABLETS BY MOUTH DAILY X3 DAYS, 2 TABLETS DAILY X3 DAYS, 1 TABLET DAILY X5 DAYS START 09/06/17 Active [facility] Sulfacetamide Sodium 100 MG/ML Topical Lotion sulfacetamide sodium (acne) 10 % lotion (suspension) APPLY TO FACE 1 TO 2 TIMES A DAY ROSACEA Active [facility] Amoxicillin 875 MG / Clavulanate 125 MG Oral Tablet [Augmentin] Augmentin 875 mg-125 mg tablet Take 1 tablet every 12 hours by oral route with meals for 10 days. Active [facility] benzonatate 100 MG Oral Capsule [Tessalon Perles] Tessalon Perles 100 mg capsule Take 2 capsules 3 times a day by oral route as directed for 10 days. Active [facility] doxycycline hyclate 20 MG Oral Tablet doxycycline hyclate 20 mg tablet Active [facility] levocetirizine dihydrochloride 5 MG Oral Tablet [Xyzal] Xyzal 5 mg tablet Take 1 tablet every day by oral route for 14 days. Active [facility] Allergies, Adverse Reactions, Alerts Substance Category Reaction Severity Reaction type Status Date Reported Comments Source Azithromycin Nausea Allergy to substance 04/05/2015 [facility] Immunizations Immunization Date Given Site Status Last Updated Comments Source Results Order Name Results Value Reference Range Date Interpretation Comments Source Urinalysis macro (dipstick) panel - Urine COLOR : Yellow 10/23/2018 [facility] Urinalysis macro (dipstick) panel - Urine CLARITY : Cloudy 10/23/2018 [facility] Urinalysis macro (dipstick) panel - Urine COLOR : Yellow 10/23/2018 [facility] Urinalysis macro (dipstick) panel - Urine CLARITY : Cloudy 10/23/2018 [facility] Urinalysis macro (dipstick) panel - Urine LEUKOCYTES : Moderate 10/23/2018 [facility] Urinalysis macro (dipstick) panel - Urine NITRITES : Positive 10/23/2018 [facility] Urinalysis macro (dipstick) panel - Urine UROBILINOGEN : Normal 10/23/2018 [facility] Urinalysis macro (dipstick) panel - Urine PROTEIN : Trace 10/23/2018 [facility] Urinalysis macro (dipstick) panel - Urine pH : 6.0 10/23/2018 [facility] Urinalysis macro (dipstick) panel - Urine BLOOD : Large 10/23/2018 [facility] Urinalysis macro (dipstick) panel - Urine SPECIFIC GRAVITY : 1.010 10/23/2018 [facility] Urinalysis macro (dipstick) panel - Urine KETONES : Negative 10/23/2018 [facility] Urinalysis macro (dipstick) panel - Urine BILIRUBIN : Negative 10/23/2018 [facility] Urinalysis macro (dipstick) panel - Urine GLUCOSE Negative 10/23/2018 [facility] RESULT negative 10/23/2018 [facility] SWAB LOCATION Left and Right tonsillar pillars 10/23/2018 [facility] Bacteria identified in Urine by Culture Bacteria identified in Urine by Culture Urine Culture, Routine 10/13/2018 abnormal [facility] Bacteria identified in Urine by Culture Other Antibiotic [Susceptibility] Antimicrobial Susceptibility 10/13/2018 [facility] Urinalysis macro (dipstick) panel - Urine COLOR : Yellow 10/10/2018 [facility] Urinalysis macro (dipstick) panel - Urine CLARITY : Cloudy 10/10/2018 [facility] Urinalysis macro (dipstick) panel - Urine LEUKOCYTES : Moderate 10/10/2018 [facility] Urinalysis macro (dipstick) panel - Urine NITRITES : Positive 10/10/2018 [facility] Urinalysis macro (dipstick) panel - Urine UROBILINOGEN : Normal 10/10/2018 [facility] Urinalysis macro (dipstick) panel - Urine PROTEIN : Trace 10/10/2018 [facility] Urinalysis macro (dipstick) panel - Urine pH : 6.0 10/10/2018 [facility] Urinalysis macro (dipstick) panel - Urine BLOOD : Large 10/10/2018 [facility] Urinalysis macro (dipstick) panel - Urine SPECIFIC GRAVITY : 1.010 10/10/2018 [facility] Urinalysis macro (dipstick) panel - Urine KETONES : Negative 10/10/2018 [facility] Urinalysis macro (dipstick) panel - Urine BILIRUBIN : Negative 10/10/2018 [facility] Urinalysis macro (dipstick) panel - Urine GLUCOSE Negative 10/10/2018 [facility] Urinalysis macro (dipstick) panel - Urine COLOR : Yellow 07/05/2018 [facility] Urinalysis macro (dipstick) panel - Urine CLARITY : Clear 07/05/2018 [facility] Urinalysis macro (dipstick) panel - Urine LEUKOCYTES : Trace 07/05/2018 [facility] Urinalysis macro (dipstick) panel - Urine NITRITES : Negative 07/05/2018 [facility] Urinalysis macro (dipstick) panel - Urine UROBILINOGEN : Normal 07/05/2018 [facility] Urinalysis macro (dipstick) panel - Urine PROTEIN : Trace 07/05/2018 [facility] Urinalysis macro (dipstick) panel - Urine pH : 5.0 07/05/2018 [facility] Urinalysis macro (dipstick) panel - Urine BLOOD : Non-hemolized Trace 07/05/2018 [facility] Urinalysis macro (dipstick) panel - Urine SPECIFIC GRAVITY : 1.010 07/05/2018 [facility] Urinalysis macro (dipstick) panel - Urine KETONES : Trace 07/05/2018 [facility] Urinalysis macro (dipstick) panel - Urine BILIRUBIN : Negative 07/05/2018 [facility] Urinalysis macro (dipstick) panel - Urine GLUCOSE Negative 07/05/2018 [facility] Influenza A negative 06/04/2018 [facility] Influenza B negative 06/04/2018 [facility] RESULT negative 06/04/2018 [facility] SWAB LOCATION Left and Right tonsillar pillars 06/04/2018 [facility] Urinalysis macro (dipstick) panel - Urine COLOR : Yellow 12/02/2017 [facility] Urinalysis macro (dipstick) panel - Urine CLARITY : Cloudy 12/02/2017 [facility] Urinalysis macro (dipstick) panel - Urine LEUKOCYTES : Trace 12/02/2017 [facility] Urinalysis macro (dipstick) panel - Urine NITRITES : Negative 12/02/2017 [facility] Urinalysis macro (dipstick) panel - Urine UROBILINOGEN : Normal 12/02/2017 [facility] Urinalysis macro (dipstick) panel - Urine PROTEIN : Negative 12/02/2017 [facility] Urinalysis macro (dipstick) panel - Urine pH : 5.0 12/02/2017 [facility] Urinalysis macro (dipstick) panel - Urine BLOOD : Moderate 12/02/2017 [facility] Urinalysis macro (dipstick) panel - Urine SPECIFIC GRAVITY : 1.000 12/02/2017 [facility] Urinalysis macro (dipstick) panel - Urine KETONES : Negative 12/02/2017 [facility] Urinalysis macro (dipstick) panel - Urine BILIRUBIN : Negative 12/02/2017 [facility] Urinalysis macro (dipstick) panel - Urine GLUCOSE Negative 12/02/2017 [facility] Urinalysis macro (dipstick) panel - Urine COLOR : Yellow 05/22/2016 [facility] Urinalysis macro (dipstick) panel - Urine CLARITY : Clear 05/22/2016 [facility] Urinalysis macro (dipstick) panel - Urine LEUKOCYTES : Large 05/22/2016 [facility] Urinalysis macro (dipstick) panel - Urine NITRITES : Negative 05/22/2016 [facility] Urinalysis macro (dipstick) panel - Urine UROBILINOGEN : Normal 05/22/2016 [facility] Urinalysis macro (dipstick) panel - Urine PROTEIN : Trace 05/22/2016 [facility] Urinalysis macro (dipstick) panel - Urine pH : 5.5 05/22/2016 [facility] Urinalysis macro (dipstick) panel - Urine BLOOD : Hemolyzed Trace 05/22/2016 [facility] Urinalysis macro (dipstick) panel - Urine SPECIFIC GRAVITY : 1.015 05/22/2016 [facility] Urinalysis macro (dipstick) panel - Urine KETONES : Negative 05/22/2016 [facility] Urinalysis macro (dipstick) panel - Urine BILIRUBIN : Negative 05/22/2016 [facility] Urinalysis macro (dipstick) panel - Urine GLUCOSE Negative 05/22/2016 [facility] Vital Signs Vital Sign Value Date Comments Source Diastolic (mm Hg) 90 10/23/2018 [facility] Height 63 10/23/2018 [facility] Systolic (mm Hg) 120 10/23/2018 [facility] Weight 162 10/23/2018 [facility] Diastolic (mm Hg) 80 10/10/2018 [facility] Height 63 10/10/2018 [facility] Systolic (mm Hg) 124 10/10/2018 [facility] Weight 162 10/10/2018 [facility] Diastolic (mm Hg) 87 07/05/2018 [facility] Height 63 07/05/2018 [facility] Systolic (mm Hg) 137 07/05/2018 [facility] Weight 162 07/05/2018 [facility] Diastolic (mm Hg) 80 06/04/2018 [facility] Height 63 06/04/2018 [facility] Systolic (mm Hg) 110 06/04/2018 [facility] Weight 166 06/04/2018 [facility] Diastolic (mm Hg) 74 12/02/2017 [facility] Height 63 12/02/2017 [facility] Systolic (mm Hg) 116 12/02/2017 [facility] Weight 162 12/02/2017 [facility] Diastolic (mm Hg) 84 05/22/2016 [facility] Height 63 05/22/2016 [facility] Systolic (mm Hg) 145 05/22/2016 [facility] Weight 166 05/22/2016 [facility] Encounters Location Location Details Encounter Type Encounter Number Reason For Visit Attending Provider ADM Date DC Date Status Source [place] - [facility] - [id number] Flores: [address] [place] [address], Ph. [phone] [id number] Re Long 05/22/2016 [facility] [place] [facility] - [id number]_AmarmdiaSeveriano Long, [place]: [address], [place] [address], Ph. [id number] Re Long 05/22/2016 [facility] [place] [facility] - [id number] Rene Verde, [place]: [address], [place] [address], Ph. [id number] Rene Verde 12/02/2017 [facility] [place] [facility] - [id number]_Wsvednlj Yelitza Costa PA-C: [address], [place] [address], Ph. [id number] Yelitza Costa 06/04/2018 [facility] [place] [facility] - [id number]_Upnpmieu Rachelechindarnell Contreras, [place]: [address], [place] [address], Ph. [id number] Nkechinyere Orisakarielle 07/05/2018 [facility] [place] [facility] - [id number]_Utltkhel Jianinyere Ben, [place]: [address], [place] [address], Ph. [id number] Nkechinyere Orisakarielle 07/05/2018 [facility] [place] [facility] - [id number]_Buvteqef Nkechinyere Ben, [place]: [address], [place] [address], Ph. [id number] Cal[facility]xt[facility] Orisakwe 07/05/2018 [facility] [place] [facility] - [id number]_Nwnhtrlh [place] Novoaarielle, [place]: [address] [place] [address], Ph. [id number] [facility] 10/10/2018 [facility] [place] [facility] - [id number]_Rgyffcgt [facility] [place]: [address] [place] [address], Ph. [id number] [facility] 10/10/2018 [facility] [place] [facility] - [id number]_Jkzjmsrd [place] Novoaarielle, [place]: [address] [place] [address], Ph. [id number] [facility] 10/10/2018 [facility] [place] [facility] - [id number]_Wlhthzrm Gatito Quinones, [employer]-C: [address] [place] [address], Ph. [id number] Gatito Quinones 10/23/2018 [facility] [place] [facility] - [id number]_Cytozlcm Gatito Quinones NP-C: [address] [place] [address], Ph. [id number] Gatito Quinones 10/23/2018 [facility] Procedures Procedure Code Date Perfomer Comments Source Hysterectomy [facility]
[2018-12-08 08:45] VITALS: BP 109/64
--- NOTE | 2018-12-08 15:20 | Operative Report ---
DATE OF PROCEDURE: 12/08/2018 SURGEON: Timoteo Douglass DPM Dictating an operative report for Dr. Koo. PREOPERATIVE DIAGNOSES: 1. Right accessory navicular. 2. Right posterior tibial tendon partial interstitial rupture. PROCEDURES PERFORMED: 1. Right posterior tibial tendon repair. 2. Right Kidner procedure. SURGEON: Dr. Hayes DPM. ROOMING HOUSE OPERATOR: Timoteo Douglass DPM. ANESTHESIA: General. Postoperative block consisting of 20 mL of 0.5% Marcaine plain. HEMOSTASIS: Pneumatic thigh tourniquet set at 350 mmHg for a total time of 45 minutes. MATERIALS: 4-0 Prolene, 1 GII bone anchor, 2-0 Vicryl, 3-0 Vicryl. ESTIMATED BLOOD LOSS: Less than 10 mL. PATHOLOGY: None. PROCEDURE NOTE: The patient was seen in the preop waiting room, where the correct procedure and site was identified. The patient was brought to the operating room, placed on the operating table in the supine position, general anesthesia was initiated. At this time, a well-padded pneumatic tourniquet was placed about the patient's right thigh. The right foot, ankle, and leg were then scrubbed, prepped, and draped in the usual aseptic manner. The right foot, ankle, and leg were exsanguinated with an Esmarch bandage and the pneumatic thigh tourniquet was inflated to 350 mmHg for a total time of approximately 45 minutes. Attention was directed to the medial aspect of the patient's right foot, where a 6 cm curvilinear incision was made at the level of the navicular tuberosity extending to the level of the medial malleolus. The incision was carried through subcutaneous tissue it from deep or underling structures. All vital neurovascular structures were identified and retracted medially and laterally and all bleeders were cauterized or ligated as deemed necessary. Next, the dissection was carried bluntly down to the level of the posterior tibial tendon, where utilizing hemostats and Littauer scissors, the paratenon was incised to allow for good visualization of the tendon. It was noted to be thickened and flattened at the level of the medial malleolus. At this time, the dissection was carried down to the level of the navicular, where utilizing a U-typed flap incision, the posterior tibial tendon was detached. It was tubularized utilizing 4-0 Prolene. Next, utilizing an osteotome and mallet, the os tibiale externum was resected, passed off to the back table, and this was confirmed via intraoperative fluoroscopy. Next, per manufacture protocol, 1 Mitek GII bone anchor was placed into the navicular and the tendon was advanced and reapproximated to the navicular. The remaining portion of the plantar aspect of the posterior tibial tendon was reapproximated utilizing 2-0 Vicryl. The paratenon was reapproximated using 3-0 Vicryl and the skin was closed using a running interlocking stitch of 4-0 Prolene. The incision site was then dressed with Adaptic, 4x4s, Kerlix, Webril, posterior splint, a 4-inch Surjit wrap, and 6-inch Surjit wrap. The patient tolerated the procedure and anesthesia well. The patient was transferred to the postoperative recovery room with vital signs stable and vascular status intact. The patient was monitored there for a short period of time before being sent home with the following written and oral instructions. 1. Keep the dressing clean, dry, and intact. 2. The patient is to remain nonweightbearing in a posterior splint to avoid any ambulation until being seen in the office. 3. The patient is given the office number to make sure to contact us if any problems should arise. HILDA De Guzman/HERBERT /[id number]
== END | disposition home or self-care (01) ==
LOC: OR 05:05
PROVIDERS: ATTEND Podiatrist Foot & Ankle Surgery
DX: M76.821 Posterior tibial tendinitis, right leg (principal); Z85.43 Personal history of malignant neoplasm of ovary; I10 Essential (primary) hypertension; Z01.810 Encounter for preprocedural cardiovascular examination
CPT/HCPCS: 28238; 93005; C1713; J0131; J0690; J1100; J1885; J2001; J2250; J2405; J2704